=== PATIENT | female | born 1970 | race Two or more races ===

== ENCOUNTER → 2021-09-28 | Outpatient (CLI) | payer OTHER ==
--- NOTE | 2021-09-28 16:35 | RAD ---
EXAM: CT head without contrast INDICATION: Chronic tension-type headache COMPARISON: None TECHNIQUE: Axial CT imaging through the head without intravenous contrast. Sagittal and coronal refor mats were obtained. One or more of the following individualized dose reduction techniques were utilized for this examinat ion: 1. Automated exposure control 2. Adjustment of the mA and/or kV according to patient size 3. Use of iterative reconstruction technique. FINDINGS: No intracranial hemorrhage, acute infarct, or mass lesion. Dudley-white matter differentiation is maint ained. Ventricles and sulci are normal. The skull and scalp are intact. The paranasal sinuses and mas toid air cells are clear. Globes and orbits are intact.. IMPRESSION: No acute intracranial abnormality. Electronically signed by: Laurel Ashley MD (09/28/2021 4:32 PM) [id number]
== END ==
LOC: RAD 16:00
PROVIDERS: ATTEND Preventive Medicine Occupational Medicine
DX: G44.229 Chronic tension-type headache, not intractable (principal)
CPT/HCPCS: 70450